=== PATIENT | female | born 1945 | race Hispanic/Latino ===

== ENCOUNTER 2020-04-22 09:18 | Outpatient (CLI) | payer MEDICARE ==
--- NOTE | 2020-04-22 09:58 | RAD ---
RIGHT FOREARM 2 VIEWS: HISTORY: Injury, rule out foreign body. FINDINGS/IMPRESSION: A radiopaque marker at site of potential abnormality is noted on the lateral exam. The bones are intact. Vascular calcifications are present. No radiopaque foreign body is seen. POS: AH
== END 2020-04-22 09:19 | disposition home or self-care (01) ==
LOC: NAV RAD 09:18
PROVIDERS: ATTEND Nurse Practitioner Family
DX: R22.31 Localized swelling, mass and lump, right upper limb (principal); I70.208 Unspecified atherosclerosis of native arteries of extremities, other extremity; R93.6 Abnormal findings on diagnostic imaging of limbs